=== PATIENT | female | born 2005 | race Caucasian/White ===

== ENCOUNTER 2025-02-13 15:50 | Outpatient (CLI) | payer OTHER, SELFPAY ==
--- NOTE | ~2025-02-13 | MR_ITS ---
EXAMINATION: MR lumbar spine wo con DATE: 02/13/2025 16:26 INDICATION: Chronic right-sided low back pain with sciatica. TECHNIQUE: Magnetic resonance imaging (MRI) of the lumbar spine was performed without intravenous contrast. Sequences included sagittal T2-weighted FSE, sagittal T2-weighted FS FSE, sagittal T1-weighted FSE, and axial T2-weighted FSE. COMPARISON: None FINDINGS: Alignment is normal. Vertebral body heights are normal. Intervertebral disc heights are normal. The distal spinal cord signal intensity is normal. The conus medullaris is at L1. The following disc levels are specifically discussed: L1-L2: The disc does not extend beyond the endplate margin. There is mild bilateral facet joint osteoarthritis. There is no neural foraminal stenosis. There is no central canal stenosis. L2-L3: The disc does not extend beyond the endplate margin. There is mild bilateral facet joint osteoarthritis. There is no neural foraminal stenosis. There is no central canal stenosis. L3-L4: The disc does not extend beyond the endplate margin. There is mild bilateral facet joint osteoarthritis. There is no neural foraminal stenosis. There is no central canal stenosis. L4-L5: The disc is bulging. There is severe bilateral facet joint osteoarthritis. There is mild bilateral neural foraminal stenosis. There is no central canal stenosis. L5-S1: The disc is bulging. There is moderate bilateral facet joint osteoarthritis. There is mild right neural foraminal stenosis. There is no central canal stenosis. IMPRESSION: 1. Mild lumbar spondylosis. Reviewed, dictated and finalized at location E. IMPRESSION: 1. Mild lumbar spondylosis.
--- OUTSIDE RECORDS SUMMARY | 2025-02-13 20:04 | XMS_ITS | Clinical Summary ---
Author Organization [facility] Address [address] 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 Name Role Phone Stella Mai MD Primary Care Provider [phone] Allergies Active Allergy Reactions Criticality Noted Date Comments No Known Drug Allergies 10/15/2016 Medications No known medications Active Problems Problem Noted Date Diagnosed Date Acute pharyngitis 01/03/2017 Injury of knee, leg, ankle and foot 01/03/2017 Nonsuppurative otitis media 01/03/2017 Routine infant or child health check 01/03/2017 Allergic rhinitis 01/28/2015 Immunizations Immunization Administration Dates Next Due Influenza Trivalent w/Preservative (IM) 02/03/20 16 Social History Tobacco Use Types Packs/Day Years Used Date Smoking Tobacco: Never Smokeless Tobacco: Never Comments No Sex and Gender Information Value Date Recorded Sex Assigned at Not on file 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 Gender Identity Not on file Sexual Orientation Not on file Last Filed Vital Signs Vital Sign Reading Time Taken Comments Blood Pressure 117/84 09/05/2024 10:56 AM CDT Pulse 93 09/05/2024 10:56 AM CDT Temperature 36.1 C (97 F) 09/05/2024 10:56 AM CDT Respiratory Rate 18 09/05/2024 10:56 AM CDT Oxygen Saturation 98% 09/05/2024 10:56 AM CDT Inhaled Oxygen Concentration - - Weight 74.8 kg (165 lb) 09/05/2024 10:56 AM CDT Height 180.3 cm (5' 11) 09/05/2024 10:56 AM CDT Body Mass Index 23.01 09/05/2024 10:56 AM CDT Plan of Treatment Health Maintenance Due Date Last Done Comments Annual Wellness Exam with PCP (Rolling Yr) 2004 Chlamydia Screening 2019 Annual Preventative Exam with Gyne 2020 Hepatitis C Screening 2022 Hepatitis B Vaccines (1 of 3 - 19+ 3-dose series) 2023 Influenza Vaccine (#1) 2024 , 03/16/2021, 02/03/2020, Additional history exists COVID-19 Vaccine ( - 2024- season) 2024 11/05/2021, 09/16/2020, 08/26/2020 DTaP,Tdap,and Td Vaccines (7 - Td or Tdap) 11/09/2025 11/10/2015, 06/05/2009, 12/02/2005, Additional history exists Pneumococcal Vaccine: Peds (0-5 Yrs) or At-Risk Patients (6-49 Yrs) Aged Out 05/17/2005, 2004, 2004, Additional history exists No longer eligible based on patient's age to complete this topic Hepatitis A Vaccines Completed 06/05/2009, 10/12/19 09 HPV Vaccines Completed 11/24/2016, 11/10/2015 Meningococcal Vaccine Completed 12/03/2020, 016 Care Teams Rivet Machine Operator Relationship Specialty Start Date End Date Stella Mai MD [id number] [facility] [facility] [place], [place] [address] PCP - General Pediatrics 03/02/22
--- OUTSIDE RECORDS SUMMARY | 2025-02-13 20:04 | XMS_ITS | Clinical Summary ---
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 Gender Identity Not on file Sexual Orientation Not on file Plan of Treatment Health Maintenance Due Date Last Done Comments Depression Screening 2016 Chlamydia and Gonorrhea Screening 2020 Hepatitis B Vaccine (1 of 3 - 19+ 3-dose series) 2023 Well Child Visit (ages 3 - 21) 09/19/2024 09/20/2023, 10/06/2022, 11/05/2021, Additional history exists COVID-19 Vaccine ( season) 2024 11/05/2021, 09/16/2020, 08/26/2020 Influenza Vaccine (#1) 2024 , 02/03/2020, 02/20/2019, Additional history exists DTaP/Tdap/Td Vaccine (7 - Td or Tdap) 11/09/2025 11/10/2015, 06/05/2009, 12/02/2005, Additional history exists Pneumococcal Vaccine 0-49 Aged Out 2005, 2004, 2004, Additional history exists No longer eligible based on patient's age to complete this topic Varicella Vaccine Completed 10/11/2008, 05/17/2005 Hepatitis A Vaccine Completed 06/05/2009, 9 HPV Vaccine Completed 11/24/2016, 11/10/2015 Meningococcal Vaccine Completed 12/03/2020, 016 Meningococcal Serogroup B Vaccine Completed 10/06/2022, 11/05/2021 Insurance [facility] Care Teams Railcar Brake Operator Relationship Specialty Start Date End Date Sandhya Dawson MD PCP - General Pediatrics 03/27/19
== END 2025-02-13 15:51 | disposition home or self-care (01) ==
LOC: ANHIMG 15:58
PROVIDERS: Visit Provider Family Medicine Sports Medicine
DX: M54.41 Lumbago with sciatica, right side (principal); G89.29 Other chronic pain; M47.896 Other spondylosis, lumbar region
CPT/HCPCS: 72148